=== PATIENT | female | born 1975 | race Caucasian/White ===

== ENCOUNTER 2017-03-24 02:23 | Emergency (ER) | payer OTHER ==
[2017-03-24 02:33] VITALS: BP 124/84; PULSE 83; TEMP 98.1; BMI 27.4
[2017-03-24] MEDS ORDERED: ALBUTEROL SO4 2.5/IPRATROPIUM 0.5 INH SOL 3 ML VIAL.NEB. NEB ONE ×2 (03:31)
--- NOTE | 2017-03-24 03:31 | PDOC ---
History of Present Illness - General Chief Complaint: Respiratory Stated Complaint: COUGH FEVER Time Seen by Provider: 03/24/17 02:33 - History of Present Illness Initial Comments: This 42-year-old woman with a history of seasonal asthma but no other significant past medical history, presents with 4 day history of fever/malaise/ nonproductive cough. Patient states that she has been trying to replace her fluids by mouth (mainly Tea) but has been feeling increasingly lightheaded over the last 24 hours. She has not had any nausea/vomiting/diarrhea with this illness. Her MAXIMUM TEMPERATURE was 102 degrees 48 hours ago. Since then, she states that she has felt decrease in fever. She has not had any wheezing but feels like her to chest is tight in the last 12-24 hours. She states that she used her son's nebulizer earlier today and felt briefly better after this. On no medications (used to have albuterol inhaler to be used as needed but no longer has this) ALLERGIES: Codeine (hives); however, patient has had other opiates, such as hydrocodone without ALLERGIC response Past History - Past Medical History Allergies/Adverse Reactions: Allergies Allergy/AdvReac Type Severity Reaction Status Date / Time codeine Allergy Verified 03/24/17 02:27 Home Medications: Ambulatory Orders Albuterol Sulfate Inhaler - [Ventolin HFA Inhaler -] 1 - 2 inh PO Q4H PRN #1 inhaler 03/24/17 Hydrocodone Bit/Homatrop Me-Br [Hydrocodone-Homatropine Syrup] 5 ml PO BID PRN # 60 ml MDD 10 ml 03/24/17 COPD: No Other medical history: DENIES - Suicide/Smoking/Psychosocial Hx Smoking Status: No Smoking History: Never smoked Have you smoked in the past 12 months: No Number of Cigarettes Smoked Daily: 0 Information on smoking cessation initiated: Yes Hx Alcohol Use: No Drug/Substance Use Hx: No Substance Use Type: None Review of Systems - Review of Systems Able to Perform ROS?: Yes Comments:: 12 point review of systems is negative except for what is noted in the history of present illness *Physical Exam - Vital Signs Last Vital Signs Temp Pulse Resp BP Pulse Ox 98.1 F 83 18 124/84 100 03/24/17 02:29 03/24/17 02:29 03/24/17 02:29 03/24/17 02:29 03/24/17 02:29 - Physical Exam Comments: GENERAL: Adult female, with frequent nonproductive cough but speaking in full sentences Vital signs as noted HEAD: Normal with no signs of trauma. EYES: PERRLA, EOMI, sclera anicteric, conjunctiva clear. ENT: Ears normal, nares patent, oropharynx mildly erythematous without exudates. Dry mucous membranes. NECK: Normal range of motion, supple without lymphadenopathy, JVD, or masses. LUNGS: Breath sounds equal, clear to auscultation bilaterally. Fair air exchange No wheezes, and no crackles. HEART:Regular rate and rhythm, normal S1 and S2 without murmur, rub or gallop. ABDOMEN:.normal bowel sounds No guarding,tenderness or rebound.No masses No distention. EXTREMITIES: Normal range of motion, no edema. No clubbing or cyanosis. No erythema, or tenderness. NEUROLOGICAL: Cranial nerves II through XII grossly intact. Normal speech. No focal neurological deficits. MUSCULOSKELETAL: Back non-tender to palpation, no CVA tenderness SKIN: Warm, Dry, normal turgor, no rashes or lesions noted. Progress Note - Progress Note Progress Note: Because of the patient's history of seasonal ALLERGIES/bronchospasm and only fair air exchange on exam, DuoNeb treatment will be given. Medical Decision Making - Medical Decision Making Prescription for albuterol inhaler to be used up to every 4 hours as needed for wheezing or chest tightness will be sent to her pharmacy. Also, the patient asked for "strong "medication for cough control. Hydrocodone/homatropine syrup , 5 mL up to twice a day(30 mL total) prescription will be sent to her pharmacy. Patient confirmed that she has taken hydrocodone in the past without any ALLERGIC response. Patient states that she had been given a prescription for acid glass bead maker medication by her PMD(patient could not recall the exact name) but she took only 1 dose of this because she was afraid of the side effects that she read about. This was given after she described excessive "heartburn" symptoms to her PMD. Tonight, the patient states that she vomited after paroxysm of coughing. She said that the vomitus was extremely acidic and that she had burning pain in her mid chest after vomiting. Patient has been advised to continue limited course of the acid reducing medication as prescribed by her doctor. She should also consider using vaporizer especially at night to increase humidity in the air of her home. She should return to the emergency room if she has severe shortness of breath, persistent severe cough, purulent sputum or high fever. Meanwhile, she should plan of following up with her general doctor within the next 5 days. *DC/Admit/Observation/Transfer Diagnosis at time of Disposition: Acute bronchitis Qualifiers: Bronchitis organism: unspecified organism Qualified Code(s): J20.9 - Acute bronchitis, unspecified - Discharge Dispostion Disposition: HOME Condition at time of disposition: Stable - Prescriptions Prescriptions: Albuterol Sulfate Inhaler - [Ventolin HFA Inhaler -] 1 - 2 inh PO Q4H PRN #1 inhaler PRN Reason: Short Of Breath/Wheezing Hydrocodone Bit/Homatrop Me-Br [Hydrocodone-Homatropine Syrup] 5 ml PO BID PRN # 60 ml MDD 10 ml PRN Reason: Cough - Referrals - Patient Instructions Printed Discharge Instructions: DI for Acute Bronchitis Additional Instructions: Drink plenty of water Use a vaporizer at home Albuterol inhaler 1-2 puffs every 4 hours as needed for chest tightness/wheezing Hycodan syrup 1 teaspoon up to twice a day as needed for severe cough-this medication will make you sleepy Consider using acid glass bead maker medication prescribed by your doctor Return here or see your doctor if you have green or yellow sputum/fever/ increased pain with breathing - Post Discharge Activity
== END 2017-03-24 04:08 | disposition home or self-care (01) ==
LOC: FER 02:23
PROC: 3E0F7GC Introduction of Other Therapeutic Substance into Respiratory Tract, Via Natural or Artificial Opening (ICD-10-PCS; principal; 2017-03-24)
DX: J20.9 Acute bronchitis, unspecified (principal)
CPT/HCPCS: 99281-25

== ENCOUNTER 2023-01-22 07:44 | Emergency (ER) | payer OTHER ==
[2023-01-22 07:58] VITALS: BP 124/83; PULSE 83; RESP 18; TEMP 98; BMI 33.8
[2023-01-22] MEDS ORDERED: KETOROLAC TROMETHAMINE 30 MG/1 ML VIAL IVPUSH ONE (08:51)
[2023-01-22] MEDS ORDERED: SODIUM CHLORIDE 0.9% 500 ML INFUS.BAG IV ONE (08:51)
[2023-01-22] MEDS ORDERED: KETOROLAC TROMETHAMINE 30 MG/1 ML VIAL ONE (09:11)
[2023-01-22 10:05] LABS: BASO % 0.6 % (0-2.0); EOS % 3.5 % (0-4.5); HEMATOCRIT 34.1 % (32.4-45.2); LYMPH % 24.2 % (8-40); MCH 25.7 pg (25.7-33.7); MCHC 32.3 g/dl (32.0-36.0); MEAN CELL VOLUME 79.6 fl (80-96); MEAN PLT VOLUME 8.5 fl (7.5-11.1); MONO % 5.4 % (3.8-10.2); NEUT % 66.3 % (42.8-82.8); PLATELET COUNT 315 10^3/uL (134-434); RBC 4.28 M/mm3 (3.60-5.2); RDW 13.8 % (11.6-15.6)
[2023-01-22 10:15] LABS: EPI CELLS 2 /uL (0-25.1); HYALINE CASTS 0 /uL (0-3.1); PH,URINE 5.5 (5.0-8.0); URINE APPEARANCE CLEAR; URINE BACTERIA 3 /uL (0-1359); URINE BILIRUBIN NEGATIVE (NEGATIVE); URINE COLOR RED; URINE GLUCOSE (UA) NEGATIVE (NEGATIVE); URINE KETONE NEGATIVE (NEGATIVE); URINE LEUK ESTERASE NEGATIVE (NEGATIVE); URINE NITRITE NEGATIVE (NEGATIVE); URINE PROTEIN NEGATIVE (NEGATIVE); URINE RBC 3465 /uL (0-23.9); URINE UROBILINOGEN 0.2 mg/dL (0.2-1.0); URINE WBC 6 /uL (0-25.8)
[2023-01-22 10:26] LABS: POTASSIUM 4.4 mmol/L (3.5-5.1)
[2023-01-22 10:28] LABS: CALCIUM 8.7 mg/dL (8.5-10.1)
[2023-01-22 10:29] LABS: ALBUMIN 3.8 g/dl (3.4-5.0); BLOOD UREA NITROGEN 11.4 mg/dL (7-18)
[2023-01-22 10:32] LABS: CREATININE 0.9 mg/dL (0.55-1.3)
[2023-01-22 10:34] LABS: BILIRUBIN,TOTAL 0.6 mg/dL (0.2-1); TOT PROT 7.1 g/dl (6.4-8.2)
== END 2023-01-22 13:02 | disposition home or self-care (01) ==
LOC: JER 07:44
PROC: 3E0333Z Introduction of Anti-inflammatory into Peripheral Vein, Percutaneous Approach (ICD-10-PCS; principal; 2023-01-22)
DX: N93.9 Abnormal uterine and vaginal bleeding, unspecified (principal); N85.8 Other specified noninflammatory disorders of uterus; R10.30 Lower abdominal pain, unspecified; R42 Dizziness and giddiness
CPT/HCPCS: 36415; 73562-TC-RT-FY; 76830-TC; 76856-TC; 80053; 81003; 84703; 85025; 87086; 99285-25